=== PATIENT | female | born 1990 | race Caucasian/White ===

== ENCOUNTER 2018-07-18 15:29 | Emergency (ER) | payer OTHER ==
[2018-07-18 16:17] VITALS: BP 90/60; PULSE 108; TEMP 98.5; BMI 37.5
[2018-07-18] MEDS ORDERED: SODIUM CHLORIDE 0.9% 500 ML INFUS.BAG IV ONE (17:48)
[2018-07-18] MEDS ORDERED: ONDANSETRON 4 MG/2 ML VIAL IVPB ONE (17:48)
[2018-07-18] MEDS ORDERED: ACETAMINOPHEN 325 MG TABLET (FP) PO ONE (18:02)
--- NOTE | 2018-07-18 18:02 | PDOC ---
History of Present Illness - General Chief Complaint: Pain, Acute Stated Complaint: NAUSEA/VOMITING Time Seen by Provider: 07/18/18 16:59 History Source: Patient - History of Present Illness Travel History: No Initial Comments: 07/18/18 21:40 28 year old female with no significant medical or surgical history presents with complaints of nausea and vomiting while on train today. Also complaining of pain in epigastric area and right abdomen. Denies diarrhea, constipation or change in bowels. States no fever or chills but felt hot and cold chills on train. Timing/Duration: reports: getting worse Quality: reports: cramping Abdominal Pain Onset Location: reports: epigastric Pain Radiation: reports: RUQ, RLQ Activities at Onset: reports: no specific activity Treatment Prior to Arrive: improves with: other (no intervention) Aggravating Factors: improves with: None Alleviating Factors: improves with: Rest Past History - Travel Traveled outside of the country in the last 30 days: No Close contact w/someone who was outside of country & ill: No - Past Medical History Allergies/Adverse Reactions: Allergies Allergy/AdvReac Type Severity Reaction Status Date / Time No Known Allergies Allergy Verified 07/18/18 16:13 Home Medications: Ambulatory Orders No Home Medications 0 dose .ROUTE UTDICT 12/02/11 Ondansetron [Ondansetron Odt] 8 mg PO BID PRN #3 tab.rapdis 07/18/18 COPD: No - Immunization History Td Vaccination: Yes TDAP Vaccination: Yes Immunization Up to Date: Yes - Suicide/Smoking/Psychosocial Hx Smoking Status: No Smoking History: Never smoked Number of Cigarettes Smoked Daily: 0 Abd/GI Specific PMHX - Complaint Specific PMHX Colitis: No Diverticulitis: No GERD: No Irritable Bowel Synd (IBS): No GI Ulcer Disease: No Review of Systems - Review of Systems Able to Perform ROS?: Yes Is the patient limited Malay proficient: No Constitutional: Yes: Chills, Diaphoresis, Fever HEENTM: No: Nose Congestion, Hearing Loss, Throat Swelling Respiratory: No: Cough, Orthopnea, Productive cough Cardiac (ROS): No: Chest Pain, Lightheadedness ABD/GI: Yes: Vomiting, Indigestion, Abdominal cramping Musculoskeletal: No: Back Pain, Muscle Weakness Integumentary: No: Dryness Neurological: No: Headache, Numbness, Dizziness Psychiatric: No: Stressors, Sleep Pattern Change *Physical Exam - Vital Signs Last Vital Signs Temp Pulse Resp BP Pulse Ox 98.5 F 108 H 18 90/60 100 07/18/18 16:15 07/18/18 16:15 07/18/18 16:15 07/18/18 16:15 07/18/18 16:15 - Physical Exam General Appearance: Yes: Nourished, Appropriately Dressed. No: Apparent Distress HEENT: positive: TMs Normal, Pharynx Normal Neck: positive: Supple. negative: Lymphadenopathy (R), Lymphadenopathy (L) Respiratory/Chest: positive: Lungs Clear, Normal Breath Sounds. negative: Respiratory Distress, Accessory Muscle Use Cardiovascular: positive: Regular Rhythm, Regular Rate Gastrointestinal/Abdominal: positive: Tender (epigastric, right upper and lower abdominal tenderness), Tenderness Musculoskeletal: negative: CVA Tenderness (R), CVA Tenderness (L) Extremity: positive: Normal Capillary Refill Integumentary: negative: Erythema Neurologic: positive: Fully Oriented, Alert ED Treatment Course - LABORATORY CBC & Chemistry Diagram: 07/18/18 18:29 07/18/18 18:29 Medical Decision Making - Medical Decision Making 07/18/18 21:43 28 year old female with no significant medical or surgical history presents with complaints of nausea and vomiting while on train today. Plan gastroenteritis v. appendicitis zofran 1 liter of normal saline abd/pelvis ct reassessment no more vomiting ct with slight thickening of appendix; consulted with Dr. Sandra Charles who attended and examined the patient. Recommends that patient d/c home and gave patient strict instructions to return to ed, if pain returns to right lower quadrant Patient states understanding. Rx: zofran *DC/Admit/Observation/Transfer Diagnosis at time of Disposition: Gastroenteritis - Discharge Dispostion Disposition: HOME Condition at time of disposition: Good Decision to Admit order: No - Prescriptions Prescriptions: Ondansetron [Ondansetron Odt] 8 mg PO BID PRN #3 tab.rapdis PRN Reason: nausea - Referrals - Patient Instructions Printed Discharge Instructions: DI for Viral Gastroenteritis -- Adult Additional Instructions: Please start with clear fluids and soup broth, then advance to crackers keep hydrated. Take zofran for nausea Call your primary physician for follow up appointment Return to ed for return or worsening of right abdominal pain - Post Discharge Activity Forms/Work/School Notes: Back to Work
[2018-07-18] MEDS ORDERED: ONDANSETRON 4 MG/2 ML VIAL ONE (18:17)
[2018-07-18 18:52] LABS: BASO % 0.3 % (0-2.0); EOS % 0.9 % (0-4.5); HEMOGLOBIN 11.6 GM/dL (10.7-15.3); LYMPH % 2.8 % (8-40); MCH 22.5 pg (25.7-33.7); MCHC 31.4 g/dl (32.0-36.0); MEAN CELL VOLUME 71.8 fl (80-96); MEAN PLT VOLUME 9.5 fl (7.5-11.1); MONO % 2.3 % (3.8-10.2); NEUT % 93.7 % (42.8-82.8); PLATELET COUNT 328 K/MM3 (134-434); RBC 5.15 M/mm3 (3.60-5.2); RDW 17.6 % (11.6-15.6); WHITE BLOOD COUNT 11.8 K/mm3 (4.0-10.0)
[2018-07-18 19:24] LABS: ALBUMIN 4.4 g/dl (3.4-5.0); ALK PHOS 116 U/L (45-117); ANION GAP 11 MMOL/L (8-16); BILIRUBIN,TOTAL 0.4 mg/dL (0.2-1); BLOOD UREA NITROGEN 13 mg/dL (7-18); CALCIUM 8.6 mg/dL (8.5-10.1); CHLORIDE 105 mmol/L (98-107); CO2 23 mmol/L (21-32); GLUCOSE,RANDOM 99 mg/dL (74-106); POTASSIUM 4.1 mmol/L (3.5-5.1); SGOT/AST 18 U/L (15-37); SGPT/ALT 29 U/L (13-61); SODIUM 138 mmol/L (136-145); TOT PROT 9.2 g/dl (6.4-8.2)
[2018-07-18 20:17] LABS: ANISOCYTOSIS 1+
[2018-07-18 20:18] LABS: PLATELET ESTIMATE ADEQUATE
== END 2018-07-18 22:03 | disposition home or self-care (01) ==
LOC: JERFT 15:29 → JER 15:29 → JERFT 22:03
PROC: 3E033GC Introduction of Other Therapeutic Substance into Peripheral Vein, Percutaneous Approach (ICD-10-PCS; principal; 2018-07-18)
DX: K52.9 Noninfective gastroenteritis and colitis, unspecified (principal)
CPT/HCPCS: 36415; 74176-TC; 80053; 84703; 85025; 99281-25

== ENCOUNTER 2021-05-29 18:30 | Emergency (ER) | payer OTHER ==
[2021-05-29 18:53] VITALS: BP 111/64; PULSE 85; TEMP 98.7; BMI 39.1
[2021-05-29 21:46] LABS: BASO % 0.6 % (0-2.0); EOS % 4.7 % (0-4.5); EPI CELLS 20 /uL (0-25.1); HEMATOCRIT 40.5 % (32.4-45.2); HEMOGLOBIN 13.4 GM/dL (10.7-15.3); HYALINE CASTS 3 /uL (0-3.1); LYMPH % 22.5 % (8-40); MCH 29.7 pg (25.7-33.7); MCHC 33.2 g/dl (32.0-36.0); MEAN CELL VOLUME 89.4 fl (80-96); MEAN PLT VOLUME 10.9 fl (7.5-11.1); MONO % 8.3 % (3.8-10.2); NEUT % 63.9 % (42.8-82.8); PLATELET COUNT 272 10^3/uL (134-434); RBC 4.53 M/mm3 (3.60-5.2); RDW 13.6 % (11.6-15.6); URINE APPEARANCE CLEAR; URINE BACTERIA 519 /uL (0-1359); URINE BILIRUBIN NEGATIVE (NEGATIVE); URINE COLOR YELLOW; URINE GLUCOSE (UA) NEGATIVE (NEGATIVE); URINE KETONE 1+ (NEGATIVE); URINE LEUK ESTERASE NEGATIVE (NEGATIVE); URINE NITRITE NEGATIVE (NEGATIVE); URINE PROTEIN 1+ (NEGATIVE); URINE RBC 17 /uL (0-23.9); URINE UROBILINOGEN 0.2 mg/dL (0.2-1.0); URINE WBC 17 /uL (0-25.8); WHITE BLOOD COUNT 10.5 K/mm3 (4.0-10.0)
[2021-05-29 22:01] LABS: ACTIVATED PTT 30.5 SECONDS (25.2-36.5); INR 1.09 (0.83-1.09); PROTHROMBIN TIME (PATIENT) 12.5 SEC (9.7-13.0)
[2021-05-29 22:05] LABS: CALCIUM 9.4 mg/dL (8.5-10.1)
[2021-05-29 22:06] LABS: BLOOD UREA NITROGEN 4.4 mg/dL (7-18)
[2021-05-29 22:09] LABS: CREATININE 0.8 mg/dL (0.55-1.3)
[2021-05-29 22:10] LABS: TOT PROT 7.8 g/dl (6.4-8.2)
[2021-05-29 22:11] LABS: BILIRUBIN,TOTAL 0.3 mg/dL (0.2-1)
== END 2021-05-29 23:14 | disposition home or self-care (01) ==
LOC: JER 18:30
DX: N39.0 Urinary tract infection, site not specified (principal)
CPT/HCPCS: 36415; 76817-TC; 80053; 81003; 84702; 85025; 85610; 85730; 86850; 86900; 86901; 87086; 99284-25

== ENCOUNTER 2021-08-15 04:37 | Day surgery (SDC) | payer OTHER ==
[2021-08-12 16:32] VITALS: BMI 38.7
[2021-08-15] MEDS ORDERED: LIDOCAINE 1%/EPI 1:100000 (20 ML MULTI DOSE VIAL) ONE (08:00)
[2021-08-15] MEDS ORDERED: MIDAZOLAM HCL 2 MG/2 ML SINGLE DOSE VIAL ONE (10:10)
[2021-08-15] MEDS ORDERED: PROPOFOL 20 ML ONE ×2 (10:10→10:42)
[2021-08-15] MEDS ORDERED: LIDOCAINE HCL/PF 2% SDV 5ML VIAL ONE (10:10)
[2021-08-15] MEDS ORDERED: LIDOCAINE 1%/EPI 1:100000 (20 ML MULTI DOSE VIAL) IJ ONE ×2 (10:33)
[2021-08-15] MEDS ORDERED: ceFAZolin SODIUM 1 GM VIAL ONE (10:42)
[2021-08-15] MEDS ORDERED: ceFAZolin SODIUM 1 GM VIAL IVPB ONE (10:48)
[2021-08-15] MEDS ORDERED: PHENYLEPHRINE HCL 10 MG/1 ML SINGLE DOSE VIAL ONE (10:50)
[2021-08-15] MEDS ORDERED: oxyCODONE HCL 5 MG TABLET PO PRN ×2 (11:51)
[2021-08-15] MEDS ORDERED: ONDANSETRON 4 MG/2 ML VIAL IVPUSH PRN (11:51)
[2021-08-15] MEDS ORDERED: LACTATED RINGERS SOLUTION 1,000 ML IV SCH (12:00)
[2021-08-15] MEDS ORDERED: BENZOIN/ALOE VERA/STORAX/TOLU 58 ML BOTTLE TP ONE (12:10)
[2021-08-15] MEDS ORDERED: ONDANSETRON 4 MG/2 ML VIAL ONE (13:34)
[2021-08-15 16:29] VITALS: BP 113/65; PULSE 76; TEMP 97.8
== END 2021-08-15 17:10 | disposition home or self-care (01) ==
LOC: JASU-SURG 04:37
PROVIDERS: ATTEND Surgery
PROC: 0JB50ZZ Excision of Left Neck Subcutaneous Tissue and Fascia, Open Approach (ICD-10-PCS; principal; 2021-08-15 10:30)
DX: D17.0 Benign lipomatous neoplasm of skin and subcutaneous tissue of head, face and neck (principal)
CPT/HCPCS: 81025; 88304-TC; 94760

== ENCOUNTER 2021-12-10 17:06 | Emergency (ER) | payer OTHER ==
[2021-12-10 17:30] VITALS: BP 109/71; PULSE 79; RESP 19; TEMP 98.1; BMI 35.9
[2021-12-10] MEDS ORDERED: KETOROLAC TROMETHAMINE 30 MG/1 ML VIAL IVPUSH ONE (18:03)
[2021-12-10] MEDS ORDERED: KETOROLAC TROMETHAMINE 30 MG/1 ML VIAL ONE (18:10)
[2021-12-10 20:13] LABS: BASO % 0.8 % (0-2.0); EOS % 6.6 % (0-4.5); HEMATOCRIT 33.1 % (32.4-45.2); HEMOGLOBIN 11.3 GM/dL (10.7-15.3); LYMPH % 16.8 % (8-40); MCH 27.7 pg (25.7-33.7); MCHC 34.3 g/dl (32.0-36.0); MEAN CELL VOLUME 80.9 fl (80-96); MEAN PLT VOLUME 10.1 fl (7.5-11.1); MONO % 7.5 % (3.8-10.2); NEUT % 68.3 % (42.8-82.8); PLATELET COUNT 269 10^3/uL (134-434); RBC 4.09 M/mm3 (3.60-5.2); RDW 15.4 % (11.6-15.6); WHITE BLOOD COUNT 10.2 K/mm3 (4.0-10.0)
[2021-12-10 20:26] LABS: EPI CELLS 10 /uL (0-25.1); HYALINE CASTS 0 /uL (0-3.1); PH,URINE 5.5 (5.0-8.0); URINE APPEARANCE CLEAR; URINE BACTERIA 51 /uL (0-1359); URINE BILIRUBIN NEGATIVE (NEGATIVE); URINE COLOR YELLOW; URINE GLUCOSE (UA) NEGATIVE (NEGATIVE); URINE KETONE NEGATIVE (NEGATIVE); URINE LEUK ESTERASE NEGATIVE (NEGATIVE); URINE NITRITE NEGATIVE (NEGATIVE); URINE PROTEIN NEGATIVE (NEGATIVE); URINE RBC 11 /uL (0-23.9); URINE UROBILINOGEN 0.2 mg/dL (0.2-1.0); URINE WBC 8 /uL (0-25.8)
[2021-12-10 20:30] LABS: CHLORIDE 106 mmol/L (98-107); HCG,QUALITATIVE URINE Negative; SODIUM 140 mmol/L (136-145)
[2021-12-10 20:32] LABS: CALCIUM 8.8 mg/dL (8.5-10.1)
[2021-12-10 20:33] LABS: ALBUMIN 3.7 g/dl (3.4-5.0); ANION GAP 6 MMOL/L (8-16); BLOOD UREA NITROGEN 9.8 mg/dL (7-18); CO2 28 mmol/L (21-32); GLUCOSE,RANDOM 85 mg/dL (74-106)
[2021-12-10 20:36] LABS: CREATININE 0.8 mg/dL (0.55-1.3); SGOT/AST 28 U/L (15-37); SGPT/ALT 33 U/L (13-61)
[2021-12-10 20:38] LABS: BILIRUBIN,TOTAL 0.2 mg/dL (0.2-1)
[2021-12-10 20:39] LABS: ALK PHOS 132 U/L (45-117); TOT PROT 7.7 g/dl (6.4-8.2)
== END 2021-12-10 20:49 | disposition home or self-care (01) ==
LOC: JER 17:06
PROC: 3E0333Z Introduction of Anti-inflammatory into Peripheral Vein, Percutaneous Approach (ICD-10-PCS; principal; 2021-12-10)
DX: N93.9 Abnormal uterine and vaginal bleeding, unspecified (principal)
CPT/HCPCS: 36415; 76830-TC; 80053; 81003; 84443; 84702; 84703; 85025; 86850; 86900; 86901; 87086; 99284-25